=== PATIENT | female | born 1940 | race African-American/Black ===

== ENCOUNTER 2017-06-07 18:38 | Emergency (ER) | payer MEDICARE, BC ==
[~2017-06-07] VITALS: Ht 165.1 cm; Wt 74.8 kg
[2017-06-07] MEDS ORDERED: Morphine Sulfate 4mg/ml Inj IVP ONE (19:00)
[2017-06-07 19:11] VITALS: BP 138/80
[2017-06-07 19:13] LABS: BASOPHILS % (AUTO) 0.6 % (0.0-2.0); EOSINOPHILS % (AUTO) 0.1 % (0.0-3.0); LYMPHOCYTES % (AUTO) 13.7 % (20.0-45.0); MEAN CORPUSCULAR HGB CONC 31.2 G/DL (32.0-36.0); MEAN CORPUSCULAR VOLUME 93 FL (80-99); MEAN PLATELET VOLUME 6.2 FL (6.5-10.1); MONOCYTES % (AUTO) 9.2 % (1.0-10.0); NEUTROPHILS % (AUTO) 76.4 % (45.0-75.0); PLATELET COUNT 387 K/UL (150-450); RED BLOOD COUNT 3.84 M/UL (4.20-5.40); RED CELL DISTRIBUTION WIDTH 14.6 % (11.6-14.8); WHITE BLOOD COUNT 5.1 K/UL (4.8-10.8)
[2017-06-07] MEDS ORDERED: HYDROCHLOROTH12.5 M2 ORAL (19:23)
[2017-06-07] MEDS ORDERED: LISINOPRIL5 MG ORAL (19:23)
[2017-06-07 19:30] LABS: ANION GAP 9 mmol/L (5-15); CALCIUM 9.4 MG/DL (8.5-10.1); CARBON DIOXIDE 26 MMOL/L (21-32); CHLORIDE 101 MMOL/L (98-107); CREATININE 2.2 MG/DL (0.55-1.30); POTASSIUM 4.6 MMOL/L (3.5-5.1); SODIUM 136 MMOL/L (136-145)
[2017-06-07 19:42] LABS: ALANINE AMINOTRANSFERASE 13 U/L (12-78); ALBUMIN/GLOBULIN RATIO 0.7 (1.0-2.7); ASPARTATE AMINO TRANSFERASE 27 U/L (15-37); TOTAL PROTEIN 8.3 G/DL (6.4-8.2)
[2017-06-07 22:46] LABS: APPEARANCE,URINE CLOUDY; KETONES,URINE NEGATIVE (NEGATIVE); LEUKOCYTE ESTERASE ,URINE NEGATIVE (NEGATIVE); NITRITE,URINE NEGATIVE (NEGATIVE); PH,URINE 5 (4.5-8.0); PROTEIN,URINE 2+ (NEGATIVE); UROBILINOGEN,URINE NORMAL MG/DL (0.0-1.0)
[2017-06-07 23:01] LABS: BACTERIA,URINE MODERATE /HPF; SQUAMOUS EPITHELIAL CELL,UR FEW /LPF (NONE/OCC)
[2017-06-07 23:02] LABS: AMORPHOUS SEDIMENT,UR MANY /LPF
[2017-06-07] MEDS ORDERED: CEPHALEXIN500 MG ORAL (23:05)
[2017-06-07] MEDS ORDERED: ACETAMINOPHEN-1 EAC1 ORAL (23:05)
[2017-06-07 23:10] VITALS: BP 138/80
--- NOTE | 2017-06-08 10:34 | Diagnostic Imaging Report ---
Indication: Chest pain Technique: CT chest was performed utilizing automated exposure control without intravenous contrast material. Axial and coronal images were generated. CT dose: Total DLP 619 mGycm; CTDI vol 20.4 mGy Comparison: None Findings: There is no focal consolidation. Linear probable atelectasis or scarring is noted of the lingula, anterior right middle lobe and the bilateral lower lobes. Atherosclerotic changes are seen with coronary artery calcifications. The heart size is within normal limits. No significant pericardial or pleural effusions are identified. Nonspecific bilateral axillary nodes measure up to 1.7 cm. There is a tiny hiatal hernia. Degenerative changes of the spine are noted. Impression: No focal consolidation. Mild linear and dependent opacities of the right anterior middle lobe, lingula and bilateral lower lobes suggestive of mild atelectasis or scarring. Atherosclerotic changes with coronary artery calcifications. Tiny hiatal hernia. Nonspecific bilateral axillary nodes measuring up to 1.7 cm. Clinical correlation recommended. Degenerative changes of the spine. The CT scanner at [facility] is accredited by the [employer] and the scans are performed using protocols designed to limit radiation exposure to as low as reasonably achievable to attain images of sufficient resolution adequate for diagnostic evaluation.
--- NOTE | 2017-06-08 12:08 | Emergency Room Report ---
History of Present Illness General Chief Complaint: Pain Source: Patient Present Illness HPI The patient is a 76-year-old female presenting for right-sided rib pain for the past 3 days. The injury or known reason for the pain. She denies coughing. Pain is an 8/10 dull ache to the right lower ribs and is worse with touch and deep breaths. No radiating pain. She denies history of kidney stone. She denies other symptoms including nausea, vomiting, fever, chills, shortness of breath, chest pain, abdominal pain, dysuria, hematuria Allergies: Coded Allergies: No Known Allergies (Unverified , 06/07/17) Patient History Past Medical History: see triage record Pertinent Family History: none Reviewed Nursing Documentation: PMH: Agreed, PSxH: Agreed Nursing Documentation-PMH Past Medical History: No History, Except For Hx Hypertension: Yes Review of Systems All Other Systems: negative except mentioned in HPI Physical Exam Vital Signs Date Time Temp Pulse Resp B/P (MAP) Pulse Ox O2 Delivery O2 Flow Rate FiO2 06/07/17 18:19 98.4 72 16 138/80 98 Room Air Sp02 EP Interpretation: reviewed, normal General Appearance: no apparent distress, alert, GCS 15, non-toxic Head: normocephalic, atraumatic Eyes: bilateral eye normal inspection, bilateral eye PERRL ENT: hearing grossly normal, normal pharynx, no angioedema, normal voice Neck: full range of motion, supple/symm/no masses Respiratory: lungs clear, normal breath sounds, no respiratory distress, no accessory muscle use, speaking full sentences Cardiovascular #1: regular rate, rhythm, no edema Gastrointestinal: normal bowel sounds, non tender, soft, non-distended, no guarding, no rebound Musculoskeletal: normal inspection, back normal, tender - R lower lateral ribs Neurologic: alert, oriented x3, responsive, motor strength/tone normal, sensory intact, speech normal Psychiatric: judgement/insight normal, memory normal, mood/affect normal, no suicidal/homicidal ideation Skin: normal color, no rash, warm/dry, well hydrated Medical Decision Making PA Attestation Dr. Campa is my supervising physician. Patient management was discussed with my supervising physician Diagnostic Impression: Primary Impression: Urinary tract infection Qualified Codes: N30.00 - Acute cystitis without hematuria Additional Impression: Back pain Qualified Codes: M54.9 - Dorsalgia, unspecified ER Course The patient is a 76-year-old female presenting for right-sided rib pain for the past 3 days Ddx considered include but not limited to lumbar strain, degenerative disease, fracture, pyelonephritis, pyelonephrosis, among others PE: Vitals WNL. NAD RRR Lungs are clear to auscultation bilaterally. Symmetrical chest movement with inspiration and expiration. Abdomen is soft and nontender There is tenderness to palpation over the right lateral lower ribs. Labs: CBC unremarkable. No leukocytosis CBC shows elevated BUN and creatinine Urinalysis consistent with infection Troponin negative CT of the chest shows no acute findings. No fracture The patient is given IV fluids and pain medication. She feels better. The patient and her daughter were provided the findings and will take these to her primary doctor. She is given prescription for Keflex for presumed infection. ER precautions given Laboratory Tests Test 06/07/17 19:00 06/07/17 22:30 White Blood Count 5.1 K/UL (4.8-10.8) Red Blood Count 3.84 M/UL (4.20-5.40) L Hemoglobin 11.1 G/DL (12.0-16.0) L Hematocrit 35.7 % (37.0-47.0) L Mean Corpuscular Volume 93 FL (80-99) Mean Corpuscular Hemoglobin 29.0 PG (27.0-31.0) Mean Corpuscular Hemoglobin Concent 31.2 G/DL (32.0-36.0) L Red Cell Distribution Width 14.6 % (11.6-14.8) Platelet Count 387 K/UL (150-450) Mean Platelet Volume 6.2 FL (6.5-10.1) L Neutrophils (%) (Auto) 76.4 % (45.0-75.0) H Lymphocytes (%) (Auto) 13.7 % (20.0-45.0) L Monocytes (%) (Auto) 9.2 % (1.0-10.0) Eosinophils (%) (Auto) 0.1 % (0.0-3.0) Basophils (%) (Auto) 0.6 % (0.0-2.0) Sodium Level 136 MMOL/L (136-145) Potassium Level 4.6 MMOL/L (3.5-5.1) Chloride Level 101 MMOL/L (98-107) Carbon Dioxide Level 26 MMOL/L (21-32) Anion Gap 9 mmol/L (5-15) Blood Urea Nitrogen 32 mg/dL (7-18) H Creatinine 2.2 MG/DL (0.55-1.30) H Estimate Glomerular Filtration Rate mL/min (>60) Glucose Level 106 MG/DL (74-106) Calcium Level 9.4 MG/DL (8.5-10.1) Total Bilirubin 0.4 MG/DL (0.2-1.0) Aspartate Amino Transferase (AST) 27 U/L (15-37) Alanine Aminotransferase (ALT) 13 U/L (12-78) Alkaline Phosphatase 77 U/L (46-116) Total Creatine Kinase 66 U/L (26-308) Creatine Kinase MB 1.0 NG/ML (0.0-3.6) Creatine Kinase MB Relative Index 1.5 Troponin I 0.000 ng/mL (0.000-0.056) Total Protein 8.3 G/DL (6.4-8.2) H Albumin 3.4 G/DL (3.4-5.0) Globulin 4.9 g/dL Albumin/Globulin Ratio 0.7 (1.0-2.7) L Urine Color Yellow Urine Appearance Cloudy Urine pH 5 (4.5-8.0) Urine Specific [place] 1.020 (1.005-1.035) Urine Protein 2+ (NEGATIVE) H Urine Glucose (UA) Negative (NEGATIVE) Urine Ketones Negative (NEGATIVE) Urine Occult Blood 1+ (NEGATIVE) H Urine Nitrite Negative (NEGATIVE) Urine Bilirubin Negative (NEGATIVE) Urine Urobilinogen Normal MG/DL (0.0-1.0) Urine Leukocyte Esterase Negative (NEGATIVE) Urine RBC 2-4 /HPF (0 - 2) H Urine WBC 2-4 /HPF (0 - 2) Urine Squamous Epithelial Cells Few /LPF (NONE/OCC) Urine Amorphous Sediment Many /LPF (NONE) H Urine Bacteria Moderate /HPF (NONE) H Urine Hyaline Casts 2-4 /LPF (NONE) H Lab Results Impression CBC unremarkable. No leukocytosis CBC shows elevated BUN and creatinine Urinalysis consistent with infection Troponin negative EKG Diagnostic Results EP Interpretation: NSR. No acute changes Rate: normal Rhythm: NSR ST Segments: no acute changes ASA given to the pt in ED: No PA Scribe Text EKG was reviewed and read with my supervising physician. No acute ST segment changes are seen. Normal rate and rhythm. No acute changes. CT/MRI/US Diagnostic Results CT/MRI/US Diagnostic Results : Imaging Test Ordered: CT abd/pelvis Impression No focal consolidation. Mild linear and dependent opacities of the right anterior middle lobe, lingula and bilateral lower lobes suggestive of mild atelectasis or scarring. Atherosclerotic changes with coronary artery calcifications. Tiny hiatal hernia. Nonspecific bilateral axillary nodes measuring up to 1.7 cm. Clinical correlation recommended. Degenerative changes of the spine. Last Vital Signs Date Time Temp Pulse Resp B/P (MAP) Pulse Ox O2 Delivery O2 Flow Rate FiO2 06/07/17 23:10 98.4 78 16 138/80 98 Room Air Status: improved Disposition: HOME, SELF-CARE Condition: Improved Scripts Acetaminophen With Codeine (T#3) (TYLENOL #3 TAB*) Y Tab 1 TAB ORAL Q6HR Y for For Pain, #10 TAB Prov: KYLIE LUQUE 06/07/17 Cephalexin* (KEFLEX*) 500 Mg Capsule 500 MG ORAL EVERY 12 HOURS, #14 CAP 0 Refills Prov: KYLIE LUQUE P.A. 06/07/17 Patient Instructions: Back Pain, Adult, Urinary Tract Infection Additional Instructions: I discussed my findings with the patient. All questions and concerns have been answered. Treatment and medication compliance have been addressed. I advised the patient that they need to follow up with PMD in 3-5 days. Return to ED if symptoms worsen, new symptoms arise, or if needed for any reason. Patient verbalized understanding of discharge instructions. KYLIE LUQUE Jun 08, 2017 12:08
--- NOTE | 2017-06-13 11:04 | Cardiology Report ---
APPROVED REPORT EKG Measurement Heart [id number] Normal sinus rhythm Nonspecific ST and T wave abnormality Abnormal ECG
== END 2017-06-07 23:16 | disposition home or self-care (01) ==
LOC: EDBD 18:38 → EMR 18:50
DX: N39.0 Urinary tract infection, site not specified (principal); M54.9 Dorsalgia, unspecified; I10 Essential (primary) hypertension
CPT/HCPCS: 36415; 71250; 80053; 81003; 82550; 82553; 84484; 85025; 87086; 93005; 96374; 99284; J2270